=== PATIENT | female | born 1960 | race Caucasian/White ===

== ENCOUNTER 2025-07-14 10:34 | Outpatient (AMB) | payer OTHER, SELFPAY ==
--- NOTE | 2025-07-14 10:34 | A.OFFPC_ITS ---
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 Required: No Accompanied by: Self / Same As Patient Allergies levofloxacin Allergy (Intermediate, Verified 07/14/25 10:39) knee swelling meloxicam Allergy (Intermediate, Verified 07/14/25 10:39) GERD Sulfa (Sulfonamide Antibiotics) Allergy (Intermediate, Verified 07/14/25 10:39) nausea/vomiting adhesive tape Adverse Reaction (Intermediate, Verified 07/14/25 10:39) Rash latex Adverse Reaction (Intermediate, Verified 07/14/25 10:39) Itching Medication List - Last Reconciled 07/14/25 by Farheen Hitchcock MD albuterol sulfate 90 mcg/actuation 2 puffs inhalation Q6H PRN amiloride 10 mg PO DAILY budesonide-formoterol 160-4.5 mcg/actuation 2 puffs inhalation BID cetirizine 10 mg PO DAILY diclofenac sodium 75 mg PO BID PRN ergocalciferol (vitamin D2) 1,250 mcg PO QWEEK fluticasone propionate 50 mcg/actuation intranasal trazodone mg PO Tobacco use date assessed: 07/14/25 Dental Screening Dental Screen Date: 07/14/25 Did you have a dental visit in the last 12 months?: Yes Did you have a dental problem in the last 6 months where you did not have access to dental care?: No Was dental information given to patient?: Patient has dentist HPI HPI Comments History of Present Illness Details The patient is a 64 year old individual presenting to re-establish primary care and for a physical examination. History of depression- notes she is doing well, no further episodes, in remission Fatigue: The patient reports feeling sluggish with body aches. The patient acknowledges poor water intake and notes that her urine sometimes has a strong smell. Hypertension: The patient expresses a desire to eventually discontinue blood pressure medication. The patient admits to not taking the medication sometimes. Discussed need for continued monitoring and potential taper with weight loss. Thyroid nodule and Parathyroid disorder/Subclinical hyperthyroidism: The patient is scheduled for potential surgery on September 13 to be done by Dr. Vieira at [facility]. Has also seen [facility] Endocrinology. Tobacco Use Disorder: The patient smokes about half a pack of cigarettes per day but sometimes does not finish the whole cigarette. The patient has a strong desire to quit and previously had an adverse reaction to bupropion. The patient previously tried the nicotine gum and patch. Arthralgia of the knee: The patient reports bilateral knee pain, which recently flared up after a long car trip. The patient has been taking diclofenac for the pain. Insomnia: The patient takes trazodone for sleep as needed, particularly when traveling. Dietary Habits: The patient reports eating late at night. The patient's appetite has returned after a period of not being able to eat. Social History: - Employment: The patient is retired and reports feeling peaceful and living her best life. - Substance Use: The patient smokes abou t half a pack of cigarettes per day and wishes to quit. - Exercise: The patient acknowledges a n eed to exercise more. - Family Status: The patient has been ma rried for nearly 30 years and has a son and a daughter, as well as a grandson. Care Team OBGYN- used to see Dr. Dubon who retired, looking for a new provider [facility] GI Health Maintenance colonoscopy done in 2023-up to date mammogram done- up to date 07/2024 done at [facility] bone density up to date 10/01/24 at [facility] Medical History (Updated 07/14/25 @ 17:46 by Farheen Hitchcock MD) Routine adult health maintenance Diverticulitis Depression H. pylori infection Liver hemangioma Subclinical hyperthyroidism Fatigue Parathyroid adenoma Thyroid nodule Unspecified asthma Primary hypertension Surgical History (Updated 07/14/25 @ 17:35 by Farheen Hitchcock MD) Previous section Hx laparoscopic cholecystectomy History of colonoscopy (~01/06/24) Family History (Updated 07/14/25 @ 17:38 by Farheen Hitchcock MD) Sister Stroke Primary hypertension Other Coronary artery disease Diabetes mellitus Lung cancer Social History Housing: House Patient Tobacco Use Status: Current everyday Tobacco user Years Smoked: 50+ years e-Cigarette/Vaping Use: Never Used service: No Current occupational status: retired Questionnaire AUDIT C Alcohol Use Questionnaire (AUDIT-C) 1. How often do you have a drink containing alcohol?: Never 3. How often do you have six or more drinks on one occasion?: Never Total Score: 0 Review of Systems Narrative Review of Systems - Constitutional: Reports feeling sluggish, tired, and having body aches. - Musculoskeletal: Reports knee pain. - Respiratory: Denies recent need for Symbicort or albuterol inhalers. - Neurological: Reports occasional use of trazodone for sleep without residual effects. Physical exam (Primary Care) Vital Signs: Last Vital Signs Temp 97.8 F 07/14/25 10:35 Pulse 86 07/14/25 10:35 Resp 16 07/14/25 10:35 BP 126/84 07/14/25 10:35 Pulse Ox 97 07/14/25 10:35 Oxygen Delivery Method Room Air 07/14/25 10:35 BMI result Body Mass Index 27.9 Tobacco/Smoking Status: Tobacco use Status Tobacco use date assessed 07/14/25 07/14/25 10:47 Patient Tobacco Use Status Current everyday Tobacco 07/14/25 10:47 e-Cigarette/Vaping Use Never Used 07/14/25 10:47 Narrative Physical Exam - Gen: NAD - HEENT: Ears are clear. - Lungs: Clear to auscultation bilaterally. - Cardiovascular: Normal heart sounds, regular rhythm. Soft murmur across precordium - Abdomen: Soft, non-tender, with good bowel sounds, non-distended. - Extremities: no edema bilaterally Coding Level of Care Code Est Pt Prev Care 40-64y(50717) Complex visit Add On G2211 Diagnoses Routine adult health maintenance Z00.00 Primary hypertension I10 Parathyroid adenoma D35.1 Fatigue, unspecified type R53.83 Fatigue type: unspecified Subclinical hyperthyroidism E05.90 Assessment & Plan Assessment & Plan (1) Routine adult health maintenance: Code(s): Z00.00 - Encounter for general adult medical examination without abnormal findings Category: Medical (2) Primary hypertension: Code(s): I10 - Essential (primary) hypertension Category: Medical (3) Parathyroid adenoma: Code(s): D35.1 - Benign neoplasm of parathyroid gland Category: Medical (4) Fatigue: Code(s): R53.83 - Other fatigue Category: Medical Qualifiers: Fatigue type: unspecified Qualified Code(s): R53.83 - Other fatigue (5) Subclinical hyperthyroidism: Code(s): E05.90 - Thyrotoxicosis, unspecified without thyrotoxic crisis or storm Category: Medical Plan Assessment and Plan 1. Health Maintenance/Wellness Visit - The patient is a 64-year-old individual re-establishing care. The patient reports generalized fatigue and poor dietary habits. - Plan: Will obtain comprehensive labs - Counseled on lifestyle modifications, including improving hydration, modifying diet to reduce late-night eating, increasing fiber, and considering juicing with anti-inflammatory ingredients. 2. Hypertension - Blood pressure is controlled at 126/84 mmHg on amiloride. - The patient reports intermittent adherence and wishes to discontinue medication. - Plan: Advised to continue current amiloride dose. - Will re-evaluate for a dose reduction after weight loss is achieved. 3. Tobacco Use Disorder - The patient smokes half a pack of cigarettes daily and desires to quit. - The patient has a history of an adverse reaction to bupropion, did not like how she felt cognitively on medication - Plan: Recommended trying nicotine lozenges as a cessation aid. - Patient also notes she is interested in hypnosis as another potential option. She will review options. 4. Thyroid Nodules and Parathyroid Disorder - The patient has a history of thyroid nodules with inconclusive tests and is scheduled for surgery. Will obtain consult notes from Dr. Vieira - Advised that due to inconclusive results, surgical removal is often recommended 5. Knee Pain (Arthralgia) - The patient uses diclofenac for knee pain. - Plan: Advised to discontinue diclofenac due to risks of stomach irritation and kidney effects, especially with hypertension. - Recommended Tylenol Arthritis 650 mg, two pills up to twice daily, as a safer alternative. Plan - Will order comprehensive labs today - The patient is to continue amiloride 10mg for hypertension; dosage will be reassessed after weight reduction. - Recommended discontinuing diclofenac for knee pain and switching to Tylenol Arthritis 650 mg as needed. - For smoking cessation, prescibed nicotine lozenges. - Counseled on increasing daily water intake to 3-4 16-ounce bottles. - Advised on dietary modifications, including eliminating late-night eating and increasing intake of fiber-rich foods like spinach and broccoli. Discussion Notes We reviewed labs that will be drawn today to investigate the patient's symptoms of fatigue. I explained that while the patient's blood pressure is currently controlled, it is not advisable to stop medication abruptly, and we can reassess the dose after weight loss. Regarding the scheduled thyroid surgery, I advised that I will review the surgeon's notes but noted that removal is a reasonable step given the inconclusive test results. I strongly advised against the daily use of diclofenac due to its potential to irritate the stomach and affect the kidneys, especially with a history of hypertension, recommending Tylenol Arthritis as a safer alternative. We discussed smoking cessation, emphasizing it as the highest priority. Given the past adverse reaction to bupropion, I suggested nicotine lozenges as the next step. We also formulated a plan for dietary modification focused on shifting eating patterns rather than a restrictive diet, improving hydration, and increasing fiber to manage weight and improve energy levels. Patient Instructions - Focus on quitting smoking. This is the most important change for your health. You can try the nicotine lozenges we talked about. - Stop taking Diclofenac for your knee pain. It can be hard on your stomach and kidneys. You can take Tylenol Arthritis 650mg, up to two pills two times a day if you need it. - Continue taking your blood pressure medication, amiloride, as prescribed. We can discuss reducing the dose after you lose some weight. - To improve your energy and help with weight management, drink more water (aim for 3-4 bottles per day) and avoid eating late at night. Try to eat more fiber- rich foods like spinach and greens with your dinner to feel full. Orders: Orders IRON PROFILE Today D35.1 - Benign neoplasm of parathyroid gland, D50.9 - Iron deficiency anemia, unspecified, I10 - Essential (primary) hypertension, R53.83 - Other fatigue Complete Blood Count Auto Diff Today D35.1 - Benign neoplasm of parathyroid gland, D50.9 - Iron deficiency anemia, unspecified, I10 - Essential (primary) hypertension, R53.83 - Other fatigue Comprehensive Met. Panel Today D35.1 - Benign neoplasm of parathyroid gland, D50.9 - Iron deficiency anemia, unspecified, I10 - Essential (primary) hypertension, R53.83 - Other fatigue TSH reflex Free T4 Today D35.1 - Benign neoplasm of parathyroid gland, D50.9 - Iron deficiency anemia, unspecified, I10 - Essential (primary) hypertension, R 53.83 - Other fatigue Vitamin B12 Today D35.1 - Benign neoplasm of parathyroid gland, D50.9 - Iron deficiency anemia, unspecified, I10 - Essential (primary) hypertension, R53.83 - Other fatigue Vitamin D 25-OH Total Today D35.1 - Benign neoplasm of parathyroid gland, D50.9 - Iron deficiency anemia, unspecified, I10 - Essential (primary) hypertension, R53.83 - Other fatigue Magnesium Today D35.1 - Benign neoplasm of parathyroid gland, D50.9 - Iron deficiency anemia, unspecified, I10 - Essential (primary) hypertension, R53.83 - Other fatigue Parathyroid Hormone Intact Today D35.1 - Benign neoplasm of parathyroid gland, I10 - Essential (primary) hypertension Ferritin Today D35.1 - Benign neoplasm of parathyroid gland, D50.9 - Iron deficiency anemia, unspecified, I10 - Essential (primary) hypertension, R53.83 - Other fatigue Hemoglobin A1c Today D35.1 - Benign neoplasm of parathyroid gland, D50.9 - Iron deficiency anemia, unspecified, I10 - Essential (primary) hypertension, R53.83 - Other fatigue Microalbumin, Random (w Creat) Today I10 - Essential (primary) hypertension Referrals UNHAIRER Referral Z01.419 - Encounter for gynecological examination (general) (routine) without abnormal findings Medications: New acetaminophen ER (Tylenol Arthritis Pain) 1,300 mg (2 x 650 mg) PO BID 60 tabs 5RF KNEE PAIN nicotine (polacrilex) (Nicorette) 2 mg buccal Q4H PRN 108 ea 3RF nicotine cravings
[2025-07-14 10:35] VITALS: BP 126/84; PULSE 86; RESP 16; TEMP 36.6; O2SAT 97; BMI 27.9
--- OUTSIDE RECORDS SUMMARY | 2025-07-14 15:33 | XMS_ITS | Patient Health Record ---
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 . . Pt had a [facility] appointment today; Duration: . 10/08/2021 Active Naproxen Active Vitamin D Active Immunizations Vaccine Route Administration Date Status Comme nts COVID-19 Moderna Vaccine Unknown 07/31/2021 Administere d Social History Tobacco Use: Social History Observation Description Date Details (start date - stop date) Current Smoker NA - NA Tobacco Use/Smoking Question Answer Notes Are you a: current smoker How often do you smoke cigarettes? every day How many cigarettes a day do you smoke? 11-20 Alcohol Screen Question Answer Notes Did you have a drink containing alcohol in the p ast year? Yes Points 0 Interpretation Negative Tobacco use other than smoking: Question Answer Notes Are you an other tobacco user? No Problems Problem Type SNOMED Code ICD Code Onset Dates Problem Status W/U Status Risk Notes Problem Plantar wart ([id number]) Plantar wart (B07.0) Active confirmed Plan Of Treatment Pending Test Test Name Order Date 21640-Lnsd Destruction, 1-14 10/08/2021 Insurance Providers Payer Name Payer Address Payer Phone Subscriber Number Group Number Insured Name Patient Relationship to Insured Coverage Start Date Coverage End Date [facility] [address] [place] [address] [id number] Layla Otero Self - patient is the insured Medical (General) History Medical History History ICD Code asthma High blood pressure Lung disease Bone implants/screws thyroid Back,Hip,and Knee pain Transfusions Surgical History Surgery Date(Month/Year) knee replacement - Right
== END 2025-07-14 11:32 | disposition home or self-care (01) ==
LOC: HO.HMCHD 10:34
PROVIDERS: PCP Internal Medicine; Visit Provider Internal Medicine
DX: Z00.00 Encounter for general adult medical examination without abnormal findings (principal); I10 Essential (primary) hypertension; D35.1 Benign neoplasm of parathyroid gland; R53.83 Other fatigue; E05.90 Thyrotoxicosis, unspecified without thyrotoxic crisis or storm

== ENCOUNTER 2025-07-14 11:37 | Outpatient (REF) | payer OTHER, SELFPAY ==
[2025-07-14 13:12] LABS: MANUAL DIFF FLAG NO
[2025-07-14 13:17] LABS: Hematocrit 42.7 % (37.0-47.0); Hemoglobin 13.4 g/dl (12.0-16.0); Imm Gran Abs Auto 0.01 X10*3/uL (0.00-0.03); Imm Gran Pct Auto 0.2 % (0.0-0.4); Lymphocytes Absolute Auto 2.0 X10*3/uL (1.2-4.9); Mean Corpuscular HGB Conc 31.4 g/dl (31.0-35.0); Mean Corpuscular Hemoglobin 28.8 pg (27.0-33.0); Mean Corpuscular Volume 91.6 fL (80.0-98.0); NRBC Abs Auto 0.000 X10*3/uL (0.0-0.012); NRBC Pct Auto 0.0 /100WBC (0.0-0.2); Platelet Count 328 X10*3/uL (160-400); Red Blood Count 4.66 X10*6/uL (4.20-5.50); White Blood Count 5.6 X10*3/uL (4.8-10.8)
[2025-07-14 14:02] LABS: Microalbum/Creatinine Ratio Ur 10.7 ug/mg cr (<30)
[2025-07-14 14:04] LABS: Parathyroid Hormone Intact 99.1 pg/mL (8.7-77.1)
[2025-07-14 14:15] LABS: Alanine Aminotransferase 18 U/L (0-31); Albumin Level 4.8 g/dL (3.5-5.0); Alkaline Phosphatase 132 U/L (39-117); Anion Gap 10 (12-20); Aspartate Amino Transferase 20 U/L (5-31); Blood Urea Nitrogen 14 mg/dL (9-16); Calcium 10.5 mg/dL (8.4-10.2); Carbon Dioxide 29 mmol/L (22-29); Chloride 106 mmol/L (96-108); Estimated Glomerular Filt Rate > 60; Iron 106 mcg/dL (30-160); Magnesium 2.5 mg/dL (1.6-2.6); Percent Iron Saturation 33 % (15-50); Potassium 4.6 mmol/L (3.3-5.1); Sodium 140 mmol/L (135-145); Total Iron Binding Capacity 318 mcg/dL (228-428); Total Protein 7.6 g/dL (6.5-8.0); Unsaturated Iron Binding 212 ug/dL
[2025-07-14 14:20] LABS: Vitamin B12 464 pg/mL (200-900)
[2025-07-14 14:33] LABS: Ferritin 55 ng/mL (10-250)
--- OUTSIDE RECORDS SUMMARY | 2025-07-14 17:57 | XMS_ITS | Data Portability ---
Author Organization [place] - [facility], Allergy Address [address] [address] Care Team Providers [facility] Assistants Teacher Name Role Phone RUBEN SMALLS Primary Care Provider Assessment Encounter Date Assessment Date Assessment LastModified by Organization Details LastModified Time 07/16/2024 07/16/2024 63-year-old femrichard limon with a history of right submandibular stone removal in her 20s presents today for evaluation of sialodocholithiasis . She will get recurrent swelling in the right submandibular gland, without any infections. There is a small stone palpable and visible at the papilla of the right Indian's duct. There is some crepitation at the proximal duct. She had an ultrasound showing multiple shadowing echogenic foci within the duct of the right submandibular gland and enlargement and hyperemia seen within the parenchyma of the gland. We discussed in all likelihood to remove all of the stones will require submandibular gland excision. I did recommend CT for better assessment of the locations of the stones. The stone at the papilla could potentially be removed in an in office procedure but it is unclear if the other stones will still cause symptoms. [email or web address] Not available 07/17/2024 12:06:29 04/11/2025 04/11/2025 63-year-old femrichard limon with a history of right submandibular stone removal in her 20s presents today for evaluation of sialodocholithiasis . She get recurrent swelling in the right submandibular gland, without any infections. CT scan showed: Redemonstration of enlarged right submandibular gland with multiple calcified stones as well as a right superior pole parathyroid mass. She also endorsed weight loss and vocal changes I performed an indirect laryngoscopy which did not reveal any masses or lesions although was unable to get a great view of the piriform sinuses bilaterally. I did endorse that things get worse with discomfort. We had a discussion about her findings today, she would likely require submandibular excision from the right side in the future but she would like to wait to revisit this until after her parathyroid surgery. - Parathyroidectomy coming up with Gen Surg team. - 8-month return visit, discussion of right SMG excision, recheck of vocal folds [email or web address] Not available 04/11/2025 11:52:54 Plan of Treatment Reminders Order Date Submit Date Provider Last Modified By Organization Details Last Modified Time Details Appointments [facility] 15 2025 10:00A M Dale Lake, DO Not available Not available Not available Lab None recorded . Referral None recorded . Procedures None recorded . Surgeries None recorded . Imaging CT, neck, soft tissue, w/ contrast 2023 024 [facility], [address] [place], [address], 07/23/2024 09:32:30 Medication Orders fluticas one propiona te 50 mcg/actu ation nasal spray,torres spension 2024 025 [email or web address] [id number], [address] [place], [address], 04/11/2025 11:53:59 Patient TargetsNo targets recorded. Patient InstructionsNo instructions recorded. Reason for Referral None Reported. Results Created Date Observation Date Name Description Value Unit Range Abnormal Flag Note LastModifiedBy Organization Detail LastModifiedTime 07/16/20 24 07/17/2024 BUN BUN 12 mg/dL 8-27 normal Not Available [facility] ([facility]) [address] [place], [address], 07/17/2024 03:08:51 07/16/20 24 07/17/2024 CREAT ININE creatinine 0.70 mg/dL 0.57-1 .00 normal Not Available [facility] ([facility]) [address] [place], [address], 07/17/2024 03:08:52 07/16/20 24 07/17/2024 CREAT ININE eGFR 98 mL/mi n/1.7 3 >59 normal Not Available [facility] ([facility]) [address], [place], [address], 07/17/2024 03:08:52 08/03/20 24 11/24/2023 ricardo winters ow study No observ ation record ed. [email or web address] Not Available 07/25 09:34:57 08/03/20 24 02/02/2024 US, neck, soft tissu e No observ ation record ed. [email or web address] Not Available 07/25 09:36:51 04/11/20 25 03/15/2025 CT, neck, soft tissu e, w/ contr ast No observ ation record ed. [email or web address] Not Available 03/25 12:03:27 Result Notes None recorded. Problems Name Problem SNOMED Code Status Onset Date Resolution Date Notes Provider Name and Address Organization Details Recorded Time Chronic sialadenitis 537114382 Active 2023 JULI TOBAR MD [address] [place] [address], [place], [address], [facility] - [facility] 4 09:50:27 Sialolithiasis 20803389 Active 2023 JULI TOBAR MD [address] [place], [place] [address], [address], [facility] - [facility] 4 09:50:33 Chronic rhinitis 42903050 Active 2024 Dale Lake DO [address] [place], [place] [address], [address], [facility] - [facility] 5 11:53:44 Vasomotor rhinitis 1221409 Active 2024 Dale Lake DO [address] [place], [place] [address], [address], [facility] - [facility] 5 11:53:48 Allergic rhinitis 08984099 Active 2024 Dale Lake, DO [address] [address], [place], [address], [facility] - [facility] 5 11:53:48 Problem Notes None recorded. Medical Equipment None Reported. Allergies Allergen ID Allergen Name Allergen Category Reaction Reaction Severity Criticality Documentation Date Start Date Code Code System Note Provider Name and Address Organization Details Recorded Time 943539 Substance with sulfonami de structure and antibacte rial mechanism of action (substanc e) medicatio n Not available Not available Not available 07/16/2024 54007 8003 SNOMED Gris jeffries [facility] 4 09:35:47 911923 adhesive tape environme nt,medica tion Not available Not available Not available 07/16/2024 Gris jeffries [facility] 4 09:35:54 Medications Name Sig Start Date Stop Date Status Note LastModified by Organization Details LastModified Time tetracyclin e 500 mg capsule TAKE 1 CAPSULE BY MOUTH EVERY 6 HOURS FOR 14 DAYS 07/16 completed Not Available Not Available Not Available clindamycin HCl 300 mg capsule TAKE 1 CAPSULE BY MOUTH 4 TIMES A DAY 07/16 completed Not Available Not Available Not Available azithromyci n 250 mg tablet TAKE 2 TABLETS BY MOUTH TODAY, THEN TAKE 1 TABLET DAILY FOR 4 DAYS DIRECTED 04/11 completed Not Available Not Available Not Available fluconazole 150 mg tablet TAKE 1 TABLET BY MOUTH NEEDED active Not Available Not Available No t Available prednisone 20 mg tablet TAKE 2 TABLETS BY MOUTH EVERY DAY FOR 5 DAYS active Not Available Not Available No t Available metronidazo le 250 mg tablet TAKE 1 TABLET BY MOUTH 4 TIMES A DAY, FOR 14 DAYS,INST R:DO NOT DRINK ALCOHOL 07/16 completed Not Available Not Available Not Available amiloride 5 mg tablet TAKE 2 TABLETS BY MOUTH EVERY DAY active Not Available Not Available No t Available bismuth subsalicyla te 262 mg chewable tablet CHEW 2 TABLETS 4 TIMES A DAY FOR 14 DAYS 07/16 completed Not Available Not Available Not Available diclofenac sodium 75 mg tablet,rayna yed release TAKE 1 TABLET BY MOUTH TWICE A DAY active Not Available Not Available No t Available ergocalcife rol (vitamin D2) 1,250 mcg (50,000 unit) capsule TAKE 1 CAPSULE BY MOUTH EVERY WEEK,X84 DAYS active Not Available Not Available No t Available albuterol sulfate HFA 90 mcg/actuati on aerosol inhaler INHALE 2 PUFFS EVERY 6 HOURS NEEDED FOR SHORTNESS OF BREATH OR WHEEZING active Not Available Not Available No t Available fluticasone propionate 50 mcg/actuati on nasal spray,suspe nsion SPRAY 2 SPRAYS INTO EACH NOSTRIL EVERY DAY FOR 30 DAYS active Not Available Not Available No t Available amoxicillin 875 mg-potassiu m clavulanate 125 mg tablet TAKE 1 TABLET BY MOUTH EVERY 12 HOURS FOR 10 DAYS active Not Available Not Available No t Available varenicline tartrate 0.5 mg (11)-1 mg (42) tablets in a dose pack TAKE DIRECTED active Not Available Not Available No t Available Pulmicort Flexhaler 180 mcg/actuati on breath activated INHALE 2 PUFFS TWICE A DAY 07/16 completed Not Available Not Available Not Available budesonide- formoterol HFA 160 mcg-4.5 mcg/actuati on aerosol inhaler INHALE 2 PUFFS BY MOUTH TWICE A DAY RINSE MOUTH AND THROAT AFTER USE active Not Available Not Available No t Available GaviLyte-G 236 gram-22.74 gram-6.74 gram-5.86 gram oral solution PER INSTRUCTI ONS FROM GI. 07/16 completed Not Available Not Available Not Available Readi-Cat 2 2 % (w/v) oral suspension INSTRUCTE D BY RADIOLOGY 07/16 completed Not Available Not Available Not Available Vitals Date Recorded Body height Body mass index (BMI) Body weight Provider Name and Address Organization Details Last Updated DateTime 04/11/2025 162.56 cm 26.1 kg/m2 36840.04 g SABA TONY [place] - [facility] 04/11/2025 11:31:46 Date Recorded Body height Body mass index (BMI) Body weight Provider Name and Address Organization Details Last Updated DateTime 07/16/2024 162.56 cm 24.6 kg/m2 10876.51 g Gris Sanchez [place] - [facility] 07/16/2024 09:35:37 Social History None recorded. Functional Status None recorded. Mental Status None recorded. Family History Nothing Reported. Medical History Condition Response Thyroid Problems Y Hypertension Y Asthma Y Gynecological HistoryNo gynecological history recorded. Obstetrics History GPAL:G 0 P 0 0 0 0 Past Encounters Encounter ID Performer Location Encounter Start Date Encounter Closed Date Diagnosis/Indication Diagnosis SNOMED-CT Code Diagnosis ICD10 Code Diagnosis IMO Codes Diagnosis Note [id number] JULI TOBAR MD [facility] [address] [address] 07/16/2024 09:04:03 07/16/2024 09:53:53 Chronic sialadenitis 118660923 K11.23 Sialolithiasis 46046521 K11.5 [id number] Dale Lake DO [facility] [address] [address] 04/11/2025 11:25:43 04/11/2025 11:50:08 Chronic sialadenitis 202785944 K11.23 Sialolithiasis 55906422 K11.5 Chronic rhinitis 4775804 6 J31.0 2545 Vasomotor rhinitis 43620 03 J30.0 Allergic rhinitis 870890 04 J30.9 1604396 Health Concerns Section Related Observation LastModified by Organization Detai ls LastModified Time None Recorded Concern Status LastModified by Organization Details LastModified Time None Recorded Advance Directives Directive None Recorded Payers Insurance Date Sequence Insurance Name Policy Number Policy Malin Covered Member ID Malin Member ID Guarantor Name 04/11/2025 1 [facility] [id number] 1 Layla Nails Chantal [id number] Layla Cornejo Notes Date Note Type Note Provider Name and Address Organization Details Recorded Time 07/16/2024 text/html ROS as noted in the HPI 63-year-old female presents today for evaluation of sialoadenitis. She gets right sided neck swellingDoctor initially thought it was thyroid relatedNo pain, but can swell, not always after eating, not infected. Had stone removed in her 20s. She had an ultrasound showing multiple shadowing echogenic foci within the duct of the right submandibular gland and enlargement and hyperemia seen within the parenchyma of the gland. JULI TOBAR MD [address] [place] [address], [phone], [facility] - [facility] 07/17/2024 12:06:54 04/11/2025 text/html ROS as noted in the HPI Interval history: Endorses PND chronically, no nasal sprays. She endorses a history of weight gain weight loss that fluctuated previously. She endorses chronic night sweats but no fevers or chills. No difficulty swallowing or neck pain. She denies any use of antibiotics or steroids for recurrent sialoadenitis. She feels like the swelling stable. She did have a CT scan in the interim which showed the following: Enlargement of right upper pole likely parathyroid as well as multiple large right submandibular gland stones. No obvious cervical lymphadenopathy. Her gland is similar in size to previous scan. Previously (Dr. Tobar, 07/18/2024) history of sialoadenitis. Had stone removed in her 20s. In 2023 for she had an ultrasound showing multiple shadowing echogenic foci within the duct of the right submandibular gland and enlargement and hyperemia seen within the parenchyma of the gland. Dale Lake, DO [address] [facility] [address], [place], [address], [facility] - [facility] 04/11/2025 11:54:01 OBGyn Episode No OBEpisode recorded.
== END 2025-07-14 11:38 | disposition home or self-care (01) ==
LOC: HO.10HDL 11:37
PROVIDERS: Visit Provider Internal Medicine
DX: I10 Essential (primary) hypertension (principal); D50.9 Iron deficiency anemia, unspecified; D35.1 Benign neoplasm of parathyroid gland; R53.83 Other fatigue; Z13.1 Encounter for screening for diabetes mellitus; Z13.21 Encounter for screening for nutritional disorder
CPT/HCPCS: 36415; 80053; 82043; 82306; 82570; 82607; 82728; 83036; 83540; 83735; 83970; 84443; 85025

== ENCOUNTER 2025-08-11 10:58 | Outpatient (AMB) | payer OTHER, SELFPAY ==
--- NOTE | 2025-08-11 10:59 | A.OFFPC_ITS ---
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: No Accompanied by: Self / Same As Patient Allergies levofloxacin Allergy (Intermediate, Verified 08/11/25 10:59) knee swelling meloxicam Allergy (Intermediate, Verified 08/11/25 10:59) GERD Sulfa (Sulfonamide Antibiotics) Allergy (Intermediate, Verified 08/11/25 10:59) nausea/vomiting adhesive tape Adverse Reaction (Intermediate, Verified 08/11/25 10:59) Rash latex Adverse Reaction (Intermediate, Verified 08/11/25 10:59) Itching Medication List - Last Reconciled 08/11/25 by Farheen Hitchcock MD acetaminophen ER (Tylenol Arthritis Pain) 1,300 mg (2 x 650 mg) PO BID albuterol sulfate 90 mcg/actuation 2 puffs inhalation Q6H PRN amiloride 10 mg PO DAILY budesonide-formoterol 160-4.5 mcg/actuation 2 puffs inhalation BID cetirizine 10 mg PO DAILY ergocalciferol (vitamin D2) 1,250 mcg PO QWEEK 3 months fluticasone propionate 50 mcg/actuation intranasal nicotine (polacrilex) (Nicorette) 2 mg buccal Q4H PRN trazodone mg PO Tobacco use date assessed: 07/14/25 Dental Screening Dental Screen Date: 07/14/25 HPI HPI Comments History of Present Illness Details The patient is a 64 year old female presenting with right-sided facial swelling and pain. Recurrent Sialadenitis: The patient has a history of recurrent right-sided jaw swelling, which is intermittent. She has been seen at a walk-in clinic twice and by an ENT specialist for this issue in the past. A prior episode resolved with an a ntibiotic prescribed at a walk-in clinic. The current episode presented with tender swelling that has decreased slightly but remains very painful, with pain radiating to the back of her ear. She reports that eating peanuts may have triggered this episode and she has been using ice for relief. The patient states she maintains regular dental check-ups every six months. Asthma: The patient reports experiencing some wheezing recently, including the previous night. Has not been using symbicort, needs refill. Hyperparathyroidism: The patient is scheduled for a parathyroidectomy on September 21 at [facility]. Hypertension: compliant with regimen, blood pressure elevated today in setting of pain. [facility] Medical History (Updated 08/11/25 @ 17:28 by Farheen Hitchcock MD) Submandibular gland inflammation Routine adult health maintenance Diverticulitis Depression H. pylori infection Liver hemangioma Subclinical hyperthyroidism Fatigue Parathyroid adenoma Thyroid nodule Unspecified asthma Primary hypertension Surgical History (Updated 07/14/25 @ 17:35 by Farheen Hitchcock MD) Previous section Hx laparoscopic cholecystectomy History of colonoscopy (~01/06/24) Family History (Updated 07/14/25 @ 17:38 by Farheen Hitchcock MD) Sister Stroke Primary hypertension Other Coronary artery disease Diabetes mellitus Lung cancer Social History Housing: House Patient Tobacco Use Status: Current everyday Tobacco user Years Smoked: 50+ years e-Cigarette/Vaping Use: Never Used service: No Current occupational status: retired Questionnaire AUDIT C Alcohol Use Questionnaire (AUDIT-C) 1. How often do you have a drink containing alcohol?: Never 3. How often do you have six or more drinks on one occasion?: Never Total Score: 0 Review of Systems Narrative Review of Systems - General: Denies fever. -Constitutional: Reports desire for weight loss. - HEENT: Reports right-sided facial pain and tender swelling. - Respiratory: Reports wheezing. Physical exam (Primary Care) Vital Signs: Last Vital Signs Temp 98.0 F 08/11/25 11:00 Pulse 86 08/11/25 11:00 Resp 16 08/11/25 11:00 BP 140/86 H 08/11/25 11:00 Pulse Ox 96 08/11/25 11:00 Oxygen Delivery Method Room Air 08/11/25 11:00 BMI result Body Mass Index 29.3 Tobacco/Smoking Status: Tobacco use Status Tobacco use date assessed 07/14/25 08/11/25 11:03 Patient Tobacco Use Status Current everyday Tobacco 08/11/25 11:03 e-Cigarette/Vaping Use Never Used 08/11/25 11:03 Narrative Physical Exam - Gen: NAD - HEENT: Examination reveals enlarged and tender right submandibular region. - Palpation elicits tenderness along the salivary gland ducts. - Respiratory: Auscultation reveals slight anterior wheezing; posterior lung purcell are clear. - Card: normal S1, S2 - Abdominal: SNTND, +BS Coding Level of Care Code Est Pt Level 4 (45969) Add On Problem Visit Only Diagnoses Primary hypertension I10 Submandibular gland inflammation K11.20 Mild persistent asthma, unspecified whether complicated J45.30 Asthma severity: mild Asthma persistence: persistent Asthma complication type: unspecified Assessment & Plan Assessment & Plan (1) Primary hypertension: Code(s): I10 - Essential (primary) hypertension Category: Medical (2) Submandibular gland inflammation: Code(s): K11.20 - Sialoadenitis, unspecified Category: Medical (3) Unspecified asthma: Code(s): J45.909 - Unspecified asthma, uncomplicated Category: Medical Qualifiers: Asthma severity: mild Asthma persistence: persistent Asthma complication type: unspecified Qualified Code(s): J45.30 - Mild persistent asthma, uncomplicated Plan Assessment and Plan 1. Recurrent Right Sialadenitis - The patient's presentation of recurrent, intermittent, and tender right-sided jaw swelling is consistent with ciola-gq-eclcqhc sialadenitis, likely secondary to sialolithiasis. - She will start Augmentin 875 mg twice daily for seven days. - An ultrasound of the salivary gland will be ordered. - For pain, she will take ibuprofen 600 mg for three days, then switch to Tylenol. - A referral will be placed to ENT for further evaluation of the recurrent episodes. 2. Asthma with Wheezing - A prescription for her Symbicort maintenance inhaler will be sent, along with a rescue inhaler. - The patient was counseled to use the rescue inhaler as needed and to rinse her mouth after using Symbicort. 3. Hypertension - The patient's blood pressure was elevated at 142/88 mmHg, which is likely secondary to her acute pain. - No changes will be made to her current antihypertensive regimen. - She was advised that the use of Motrin would be for a short term of 3-5 days only. - She was instructed to monitor her blood pressure at home next week to ensure it returns to baseline. 4. Pre-operative Counseling for Parathyroidectomy - The patient is scheduled for surgery on September 21. - She was counseled to stop all vitamins and NSAIDs (ibuprofen) 7-10 days before the procedure, and to hold any sleeping medication the night before. - She should continue her blood pressure medications. - She was also advised to follow up with the surgeon's office regarding their pre-anesthesia clinic visit. Plan - Prescribed Augmentin 875 mg by a mouthpiece twice a day for seven days. - Prescribed a limited 5-day script for ibuprofen 600 mg, with instructions to take it for only three days for pain. - Ordered an ultrasound of the salivary gland. - Placed a referral to ENT for recurrent sialadenitis. Patient Instructions - Take Augmentin 875 mg by mouth twice a day for seven days. Take it with food to avoid stomach irritation. - For pain and swelling, you can take Motrin (ibuprofen) 600 mg for the next three days. After three days, switch to Tylenol for pain. - Watch for any fevers. If you have a fever, you can take Tylenol to help bring it down. - Use your rescue inhaler if you experience wheezing. Orders: Orders US soft tiss head and/or neck Today K11.20 - Sialoadenitis, unspecified Referrals Ear/Nose/Throat Referral K11.20 - Sialoadenitis, unspecified Medications: New budesonide-formoterol 160-4.5 mcg/actuation 2 puffs inhalation BID 10.2 grams 2RF amoxicillin-pot clavulanate 875-125 mg take with food 1 tab PO BID 14 tabs 0RF 7 days ibuprofen 600 mg PO BID 10 tabs 0RF severe pain Refilled acetaminophen ER (Tylenol Arthritis Pain) 1,300 mg (2 x 650 mg) PO BID 60 tabs 5RF KNEE PAIN
[2025-08-11 11:00] VITALS: BP 140/86; PULSE 86; RESP 16; TEMP 36.7; O2SAT 96; BMI 29.3
--- OUTSIDE RECORDS SUMMARY | 2025-08-11 14:16 | XMS_ITS | Clinical Summary ---
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 Phone Farheen Hitchcock MD Primary Care Provider [phone] Allergies Active Allergy Reactions Criticality Noted Date Comments Adhesive Tape-Silicones Unknown 07/07/2025 Latex Itching 07/07/2025 Levofloxacin 07/07/2025 Other Reaction(s): knee swelling Meloxicam GI intolerance 07/07/2025 Sulfa (Sulfonamide Antibiotics) Unknown 07/07/2025 Medications albuterol HFA (PROAIR HFA ; PROVENTIL HFA ; VENTOLIN HFA) 90 mcg/actuation inhaler INHALE 2 PUFFS EVERY 6 HOURS NEEDED FOR SHORTNESS OF BREATH OR WHEEZING Active aMILoride (MIDAMOR) 5 mg tablet Take 2 tablets (10 mg total) by mouth 1 (one) time each day. Active budesonide-for moteroL (SYMBICORT) 160-4.5 mcg/actuation inhaler INHALE 2 PUFFS BY MOUTH TWICE A DAY RINSE MOUTH AND THROAT AFTER USE Active cetirizine (ZyrTEC) 10 mg tablet Take 1 tablet (10 mg total) by mouth 1 (one) time each day. Active diclofenac (VOLTAREN) 75 mg EC tablet Take 1 tablet (75 mg total) by mouth 2 (two) times a day. Active ergocalciferol (VITAMIN D-2) 1,250 mcg (50,000 unit) capsule TAKE 1 CAPSULE BY MOUTH EVERY WEEK,X84 DAYS Active fluconazole (DIFLUCAN) 150 mg tablet Take 1 tablet (150 mg total) by mouth. Active fluticasone propionate (FLONASE) 50 mcg/actuation nasal spray SPRAY 2 SPRAYS INTO EACH NOSTRIL EVERY DAY FOR 30 DAYS Active Monistat 3 200 mg/5 gram (4 %) vaginal cream INSERT 1 APPLICATION VAGINALLY DAILY AT BEDTIME,X3 DAYS Active varenicline tartrate (CHANTIX MATTY) 0.5 mg (11)- 1 mg (42) tablet See administration instructions. Active traZODone (DESYREL) 50 mg tablet PLEASE SEE ATTACHED FOR DETAILED DIRECTIONS Active ammonium lactate (AmLactin) 12 % lotion Apply topically at bedtime. Apply to ball of left foot thick skin 400 g 2 5 Active urea (CARMOL) 10 % cream Apply topically if needed for dry skin. 71 g 5 026 Active Encounters Date Type Department Care Team Description 07/07/2025 10:30 AM EST Consult Orthopedic Surgery [place] [id number] [address] Mendel Archer, DPM Dermatophytosis of nail (Primary Dx); Verruca plantaris 07/07/2025 Telephone Orthopedic [address] [address] Mendel Archer DPM from Last 3 Months Social History Tobacco Use Types Packs/Day Years Used Date Smoking Tobacco: Never Assessed Comments No Sex and Gender Information Value Date Recorded Sex Assigned at Not on file Legal Sex Female 7:39 PM EST Gender Identity Not on file Sexual Orientation Not on file Obstetrics History Para Term AB IAB SAB Ectopic Multiple Livin g Live Births 2 Last Filed Vital Signs Vital Sign Reading Time Taken Comments Blood Pressure - - Pulse - - Temperature - - Respiratory Rate - - Oxygen Saturation - - Inhaled Oxygen Concentration - - Weight 64.9 kg (143 lb) 08/05/2024 1:36 PM EST Height 162.6 cm (5' 4 ) 08/05/2024 1:36 PM EST Body Mass Index 24.55 08/05/2024 1:36 PM EST Plan of Treatment Upcoming Encounters Date Type Department Care Team ([facility] st Contact Info) Description 10/31/2025 2:45 PM EDT Office Visit Orthopedic Surgery - [facility] [address] [facility] [address] [place] [address] Mendel Archer, DPM [address] [facility] [address] [place] [address] Health Maintenance Due Date Last Done Comments Colorectal Cancer Screening: Colonoscopy 1961 Cervical Cancer Screening: Pap Smear 1982 DTaP,Tdap,and Td Vaccines (2 - Td or Tdap) 01/12/2011 01/12/2001 RSV Immunization Adult Patients (1 - Risk 50-74 years 1-dose series) 10/28/2011 Zoster Vaccines (1 of 2) 10/28/2011 Pneumococcal Vaccine: 50+ Years (2 of 2 - PCV) 02/07/2018 02/07/2017 Cholesterol Screening (Lipid Panel) 07/27/2022 HIV Screening 07/27/2022 Hepatitis C Screening 07/27/2022 Social Influencers of Health Screening 07/27/2022 Hypertension/CHF/CAD Annual BMP Blood Test 08/05/2024 Depression Screening 08/25/2024 COVID-19 Vaccine ( season) 2025 07/13/2022, 08/02/2021, 01/23/2021, Additional history exists Influenza Vaccine (#1) 2025 7, 05/31/2014, 07/13/2012, Additional history exists Breast Cancer Screening 08/05/2026 08/05/20 24, 07/04/2023, 05/12/2022, Additional history exists HIB Vaccines Aged Out No longer eligi ble based on patient's age to complete this topic HPV Vaccines Aged Out No longer eligi ble based on patient's age to complete this topic Hepatitis A Vaccines Aged Out No long er eligible based on patient's age to complete this topic Hepatitis B Vaccines Aged Out No long er eligible based on patient's age to complete this topic IPV Vaccines Aged Out No longer eligi ble based on patient's age to complete this topic MMR Vaccines Aged Out No longer eligi ble based on patient's age to complete this topic Meningococcal ACWY Vaccine Aged Out N o longer eligible based on patient's age to complete this topic Meningococcal B Vaccine Aged Out No l onger eligible based on patient's age to complete this topic RSV Immunization Patients Under 20 months Aged Out No longer eligible based on patient's age to complete this topic Varicella Vaccines Aged Out No longer eligible based on patient's age to complete this topic Procedures Procedure Name Priority Date/Time Associated Diagnosis Comments MG MAMMO DIGITAL SCREENING W GARY BILAT Routine 08/05/2024 1:49 PM EST Encounter for screening mammogram for breast cancer from Last 3 Months or Most Recently Relevant to Health Maintenance Results * MG Mammo Digital Screening w Gary bilat (08/05/2024 1:49 PM EST) Anatomical Region Laterality Modality Breast Bilateral Mammography 08/06/2024 6:51 AM EST Impressions 08/06/2024 6:56 AM EST No mammographic evidence of malignancy. No suspicious interval change. A negative mammogram in the presence of a clinically suspicious palpable abnormality does not preclude the possibility of malignancy or alter the indications for biopsy. ASSESSMENT: BI-RADS 1: NEGATIVE RECOMMENDATION(S): 1: Routine screening mammogram BILATERAL in 1 year. -------- FINAL REPORT -------- Dictated By: Baldemar Gonzalez Dictated Date: 08/06/2024 06:51 ET Assigned Physician: Baldemar Gonzalez Reviewed and Electronically Signed By: Baldemar Gonzalez Signed Date: 08/06/2024 06:56 ET Workstation ID: [id number] Transcribed By: Self Edit Transcribed Date: 08/06/2024 06:51 ET Narrative 08/06/2024 6:56 AM EST EXAM: SCREENING MAMMOGRAPHY, BILATERAL HISTORY: SCREENING. No additional history. COMPARISON: 07/04/2023, 05/11/2022, 2020 TECHNIQUE: Synthesized CC and MLO projections of each breast. Tomosynthesis of each breast in the CC and MLO projections. ADDITIONAL IMAGING: None Computer-aided detection was employed with the [employer] AI 3-D. TISSUE DENSITY: The breasts are heterogeneously dense, which may obscure small masses. (BI-RADS category C) FINDINGS: RIGHT BREAST: No suspicious mass. No suspicious calcification. No distortion. No additional suspicious right breast findings LEFT BREAST: No suspicious mass. No suspicious calcification. No distortion. No additional suspicious left breast findings Procedure Note Baldemar Gonzalez MD - 08/06/2024 EXAM: SCREENING MAMMOGRAPHY, BILATERAL HISTORY: SCREENING. No additional history. COMPARISON: 07/04/2023, 05/11/2022, 2020 TECHNIQUE: Synthesized CC and MLO projections of each breast.Tomosynthesis of each breast in the CC and MLO projections. ADDITIONAL IMAGING: None Computer-aided detection was employed with the [employer] AI 3-D. TISSUE DENSITY: The breasts are heterogeneously dense, which may obscuresmall masses. (BI-RADS category C) FINDINGS: RIGHT BREAST: No suspicious mass. No suspicious calcification. No distortion. Noadditional suspicious right breast findings LEFT BREAST: No suspicious mass. No suspicious calcification. No distortion. Noadditional suspicious left breast findings IMPRESSION: No mammographic evidence of malignancy. No suspicious interval change. A negative mammogram in the presence of a clinically suspicious palpableabnormality does not preclude the possibility of malignancy or alter theindications for biopsy. ASSESSMENT: BI-RADS 1: NEGATIVE RECOMMENDATION(S): 1: Routine screening mammogram BILATERAL in 1 year. 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
--- OUTSIDE RECORDS SUMMARY | 2025-08-11 14:16 | XMS_ITS | Patient Health Record ---
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 . . Pt had a [facility] appointment today; Duration: . 10/08/2021 Active Naproxen [...] W/U Status Risk Notes Problem Plantar wart (95696272) Plantar wart (B07.0) Active confirmed Plan Of Treatment Pending Test Test Name Order Date [id number] Destruction, 1-14 10/08/2021 Insurance Providers Payer Name Payer Address Payer Phone Subscriber Number Group Number Insured Name Patient Relationship to Insured Coverage Start Date Coverage End Date [facility] [address] [place] [address] [phone] [id number] Layla Otero Self - patient is the insured Medical (General) History Medical History History ICD Code asthma High blood pressure Lung disease Bone implants/screws thyroid Back,Hip,and Knee pain Transfusions Surgical History Surgery Date(Month/Year) knee replacement - Right
== END 2025-08-11 11:24 | disposition home or self-care (01) ==
LOC: HO.HMCHD 10:58
PROVIDERS: PCP Internal Medicine; Visit Provider Internal Medicine
DX: I10 Essential (primary) hypertension (principal); K11.20 Sialoadenitis, unspecified; J45.30 Mild persistent asthma, uncomplicated